=== PATIENT | female | born 1970 | race Two or more races ===

== ENCOUNTER 2020-10-24 22:47 | Inpatient (IN) | payer BC, OTHER ==
[~2020-10-24] VITALS: Ht 160 cm; Wt 64.0 kg
--- NOTE | 2020-10-25 | NUR ---
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 TO ROOM FROM LOBBY AT THIS TIME.
--- NOTE | 2020-10-25 00:29 | NUR ---
CC OF LEFT SIDED HODGES FROM FOREHEAD DOWN UNDER EYE, LEFT SIDE NECK PAIN, LEFT ARM AND LEG WEAKNESS, RIGHT ARM PAIN, DIZZINESS, AND NAUSEA. PT REPORTS SHE NORMALLY HAS PAIN IN NECK BUT THIS IS IN A NEW SPOT. 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 DAUGHTERS AT BEDSIDE.
[2020-10-25] MEDS ORDERED: KETOROLAC 30 MG/1 ML ONE (00:49)
[2020-10-25] MEDS ORDERED: DIPHENHYDRAMINE 50 MG/ML, 1ML ONE (00:49)
[2020-10-25] MEDS ORDERED: PROCHLORPERAZINE 5 MG/ML, 2ML ONE (00:49)
[2020-10-25 00:54] LABS: BASOPHILS % (AUTO) 1 % (0-1); EOSINOPHILS % (AUTO) 1 % (1-7); LYMPHOCYTES % (AUTO) 42 % (22-44); MEAN CORPUSCULAR HGB CONC 33.8 g/dL (32.4-35.8); MEAN PLATELET VOLUME 8.2 fL (7.4-10.4); MONOCYTES % (AUTO) 7 % (2-9); NEUTROPHILS % (AUTO) 50 % (42-75); PLATELET COUNT 240 x10^3/uL (130-400); RED BLOOD COUNT 4.66 x10^6/uL (3.82-5.3); RED CELL DISTRIBUTION WIDTH 13.6 % (9.6-15.2)
[2020-10-25] MEDS ORDERED: KETOROLAC 30 MG/1 ML IVPush ONE (01:00)
[2020-10-25] MEDS ORDERED: DIPHENHYDRAMINE 50 MG/ML, 1ML IVPush ONE (01:00)
[2020-10-25] MEDS ORDERED: PROCHLORPERAZINE 5 MG/ML, 2ML IVPush ONE (01:00)
[2020-10-25 01:05] LABS: ALANINE AMINOTRANSFERASE 38 U/L (12-78); ALBUMIN 3.9 g/dL (3.4-5.0); ANION GAP 4 mmol/L (5-15); CALCIUM 9.3 mg/dL (8.5-10.1); CHLORIDE 107 mmol/L (98-107)
[2020-10-25 01:16] LABS: ALKALINE PHOSPHATASE 88 U/L (45-117); BILIRUBIN,TOTAL 0.4 mg/dL (0.2-1.0); TOTAL PROTEIN 8.2 g/dL (6.4-8.2); TROPONIN I < 0.015 ng/mL (0.000-0.045)
--- NOTE | 2020-10-25 02:02 | NUR ---
PT IN IMAGING
[2020-10-25] MEDS ORDERED: OMNIPAQUE 350 MG/ML, 100ML BOTTLE ONE (02:15)
--- NOTE | 2020-10-25 02:51 | NUR ---
REPORT GIVEN TO KRYSTAL BAILEY
--- NOTE | 2020-10-25 04:25 | NUR ---
REPORT GIVEN TO LEO SILVA
[2020-10-25] MEDS ORDERED: DOCUSATE 100 MG CAPSULE PO PRN (04:30)
[2020-10-25] MEDS ORDERED: ONDANSETRON 2MG/ML, 2ML IVPush PRN (04:30)
[2020-10-25 04:55] LABS: BASOPHILS % (AUTO) 0 % (0-1); EOSINOPHILS % (AUTO) 2 % (1-7); LYMPHOCYTES % (AUTO) 49 % (22-44); MEAN CORPUSCULAR HGB CONC 33.7 g/dL (32.4-35.8); MEAN PLATELET VOLUME 8.3 fL (7.4-10.4); MONOCYTES % (AUTO) 6 % (2-9); NEUTROPHILS % (AUTO) 43 % (42-75); PLATELET COUNT 223 x10^3/uL (130-400); RED BLOOD COUNT 4.45 x10^6/uL (3.82-5.3); RED CELL DISTRIBUTION WIDTH 13.7 % (9.6-15.2)
[2020-10-25 05:06] LABS: INTERNATIONAL NORMALIZED RATIO 0.96 (0.93-1.1); PROTHROMBIN TIME 10.3 Seconds (9.6-11.5)
[2020-10-25 05:07] LABS: ALANINE AMINOTRANSFERASE 34 U/L (12-78); ALBUMIN 3.5 g/dL (3.4-5.0); ANION GAP 10 mmol/L (5-15); CALCIUM 8.9 mg/dL (8.5-10.1); CHLORIDE 106 mmol/L (98-107); CREATININE 0.67 mg/dL (0.55-1.02)
[2020-10-25 05:10] LABS: ALKALINE PHOSPHATASE 97 U/L (45-117); BILIRUBIN,TOTAL 0.4 mg/dL (0.2-1.0); TOTAL PROTEIN 7.1 g/dL (6.4-8.2)
[2020-10-25] MEDS: ENOXAPARIN 40 MG/0.4 ML SQ SCH (06:17)
[2020-10-25 08:45] VITALS: BP 127/62
[2020-10-25] MEDS: METHOCARBAMOL 750 MG TABLET PO PRN ×2 (09:05→14:02)
[2020-10-25] MEDS: ASPIRIN 81 MG TABLET CHEW PO SCH (09:06)
[2020-10-25 12:00] VITALS: BP 128/81
[2020-10-25 15:56] VITALS: BP 118/76
[2020-10-25] MEDS ORDERED: ATORVASTATIN 40 MG TABLET PO SCH (21:00)
[2020-10-26 01:03] VITALS: BP 129/87
[2020-10-26 04:00] VITALS: BP 120/80
[2020-10-26] MEDS: METHOCARBAMOL 750 MG TABLET PO PRN (04:41)
[2020-10-26] MEDS: ENOXAPARIN 40 MG/0.4 ML SQ SCH (04:41)
[2020-10-26 07:16] VITALS: BP 124/78
[2020-10-26 08:00] LABS: CHOL/HDL RATIO 3.1; LDL/HDL RATIO 1.6 (0.5-3.0)
[2020-10-26] MEDS: ASPIRIN 81 MG TABLET CHEW PO SCH (08:08)
[2020-10-26] MEDS ORDERED: SUMATRIPTAN 25 MG TABLET ONE (08:22)
[2020-10-26] MEDS ORDERED: SUMATRIPTAN 50 MG TABLET PO PRN (08:30)
[2020-10-26 12:36] VITALS: BP 133/86
[2020-10-26] MEDS ORDERED: ASPI-963 PO (14:09)
[2020-10-26] MEDS ORDERED: SUMA50TA3 PO (14:09)
[2020-10-26] MEDS ORDERED: ATOR40TA78 PO (14:09)
== END 2020-10-26 17:38 | disposition home or self-care (01) | DRG 103 ==
LOC: ED 23:45 → EDIP 10-25 04:49 → 4WST 10-25 04:51
PROVIDERS: ADMIT Internal Medicine; ATTEND Internal Medicine
DX: G43.009 Migraine without aura, not intractable, without status migrainosus (principal); G45.9 Transient cerebral ischemic attack, unspecified; F19.10 Other psychoactive substance abuse, uncomplicated; E87.6 Hypokalemia; I10 Essential (primary) hypertension; G89.29 Other chronic pain; I25.10 Atherosclerotic heart disease of native coronary artery without angina pectoris; Z90.710 Acquired absence of both cervix and uterus; Z98.1 Arthrodesis status
CPT/HCPCS: 36415; 70450; 70496; 70498; 70551; 80053; 80061; 83036; 84443; 84484; 85025; 85610; 93005; 93306; 93356; 93880; 96374; 96375; G0378; J1650; J1885; Q9967; J0780; J1200